=== PATIENT | female | born 1940 | race Caucasian/White ===

== ENCOUNTER 2019-09-27 10:25 | Emergency (ER) | payer MEDICARE, OTHER ==
[~2019-09-27] VITALS: Ht 170.2 cm; Wt 64.9 kg
[2019-09-27 10:27] VITALS: BP 134/71
[2019-09-27] MEDS ORDERED: HYOS1TAB (10:34)
== END 2019-09-27 12:02 | disposition home or self-care (01) ==
LOC: M ED 10:25
DX: R19.7 Diarrhea, unspecified (principal); Z88.0 Allergy status to penicillin; Z88.8 Allergy status to other drugs, medicaments and biological substances; Z79.899 Other long term (current) drug therapy